=== PATIENT | female | born 1965 | race Two or more races ===

== ENCOUNTER 2020-06-28 09:35 | Outpatient (CLI) | payer OTHER | END 2020-06-28 23:59 | disposition home or self-care (01) | LOC: MSC 09:35 | PROVIDERS: ATTEND Internal Medicine | DX: Z00.00 Encounter for general adult medical examination without abnormal findings (principal); F32.9 Major depressive disorder, single episode, unspecified; I10 Essential (primary) hypertension; E66.3 Overweight; Z68.30 Body mass index [BMI] 30.0-30.9, adult ==